=== PATIENT | female | born 1975 | race Caucasian/White ===

== ENCOUNTER 2021-03-10 19:05 | Emergency (ER) | payer MEDICAID ==
[~2021-03-10] VITALS: Ht 162.6 cm; Wt 104.5 kg
[2021-03-10] MEDS ORDERED: IBUPROFEN 600 MG TABLET PO ONE (22:45)
[2021-03-10 23:00] VITALS: BP 135/88
== END 2021-03-11 00:10 | disposition home or self-care (01) ==
LOC: EMS 19:08
DX: S83.91XA Sprain of unspecified site of right knee, initial encounter (principal); X58.XXXA Exposure to other specified factors, initial encounter; Y93.89 Activity, other specified; Y92.89 Other specified places as the place of occurrence of the external cause; Y99.8 Other external cause status
CPT/HCPCS: 99283